=== PATIENT | female | born 1965 | race Caucasian/White ===

== ENCOUNTER 2024-07-04 02:27 | Day surgery (SDC) | payer OTHER, SELFPAY ==
[2024-06-23 13:50] VITALS: BMI 28.2
--- NOTE | 2024-06-23 14:00 | PC.NURSE ---
Report to the Outpatient Waiting Room, entrance under the green pavilion located off [facility], at time __0700__ on date ___07/04/24___. Planned Procedure Time: ___09___.? Time changes happen often and if your time is changed the preop area will call you the afternoon before. - You and your visitor will be asked to self-screen and do not enter if you have any COVID symptoms. Please call surgeon if you need to reschedule. - A mask is optional within the hospital at this time. Patients may have clear liquids (water, carbonated beverages, clear teas, apple juice) until 3 hours prior to surgery with a maximum of 20 ounces. - No food from midnight until time of surgery and no smoking, or chewing tobacco (or any form of nicotine). No chewing gum, candy or mints. Take only the following medications with a SIP of water on the morning of surgery: ____amlodipine and metoprolol____ DO NOT STOP ANY OF YOUR OTHER PRESCRIPTION MEDICATIONS PRIOR TO SURGERY EXCEPT THE FOLLOWING Hold all vitamins and supplements for 3 days per anesthesiologist. Please no make-up, nail kiswahili, hairspray, perfume, deodorant, or body powder the day of surgery.? No jewelry (including any body piercings) or valuables the day of surgery, leave them at home.? Please take a shower or bath the night before, or the morning of, surgery with an antibacterial soap.? Wear comfortable, loose fitting clothing. - Jewelry must be removed prior to entering the operating room.?Rings and piercings that are not removed may be cut off. - The hospital will not accept responsibility for valuables.? - Please leave all valuables, including medications, at home the day of surgery. If you are going home after surgery, a licensed otr driver must drive you home.? - NO public transportation without another adult if you receive anesthesia. - We recommend that an adult stay with you for 24 hours following discharge. - We also recommend that you do not drive, make important decision, drink alcoholic beverages, or take any drugs that were not prescribed by your health care provider for at least 24 hours after your discharge time. Follow any additional instructions given to you from your surgeon. Telephone instructions given to ___Jayne__and asked if any additional questions and then verbalized understanding. Patient advised to call surgeon office or pre surgery nurse liaison [phone] if any additional questions.
--- OUTSIDE RECORDS SUMMARY | 2024-07-04 02:32 | XMS_ITS ---
Author Organization [employer] [place] ([address]) Address [address] [place] [address] Care Team Providers Care Pneumatic Tool Operator Name Role Phone Kin BEARD, Nidal Primary Care Provider Unavail able Obed García Unavailable [phone] Scott Moraes Unavailable [phone] REASON FOR VISIT SCIT - Traditional Schedule Allergy immunotherapy Medications Medication SIG (Take, Route, Frequency, Duration) Notes Start Date End Date Status Norvasc 10 MG 1 tab(s) orally once a day Active AEROCHAMBER MDI SPACER - MOUTHPIECE (ADULT) N/A DIRECTED PO PER ASTHMA ACTION PLAN for 30 DAY(S) *Please review for potential replacement for e-prescription and drug interaction check* Active Lipitor 10 MG 1 tab(s) orally once a day (at bedtime) Active Bystolic 10 MG 1 tab(s) orally once a day Active Citalopram Hydrobromide 20 MG 1 tab(s) orally once a day for 30 day(s) Active PROAIR HFA CFC FREE 90 MCG/INH 2 PUFF(S) INHALED Q4-6 HOURS, PRN AND PER THE ASTHMA ACTION PLAN for 90 DAYS *Please review for potential replacement for e-prescription and drug interaction check* Active OLOPATADINE NASAL 665 MCG/INH 2 SPRAY(S) INTRANASALLY 2 TIMES A DAY for 30 DAY(S) *Please review for potential replacement for e-prescription and drug interaction check* Active Pataday 0.2 % 1 gtt in each affected eye once a day Active PROAIR HFA CFC FREE 90 MCG/INH 2 PUFF(S) INHALED Q4-6 HOURS, PRN AND PER THE ASTHMA ACTION PLAN for 90 DAYS *Please review for potential replacement for e-prescription and drug interaction check* Active OLOPATADINE NASAL 665 MCG/INH 2 SPRAY(S) INTRANASALLY 2 TIMES A DAY for 30 DAY(S) *Please review for potential replacement for e-prescription and drug interaction check* Active ASMANEX HFA 200 mcg/inh 400 mcg inhaled 2 times a day for 90 days Not-Taking ZYRTEC 10 mg 1 tab(s) orally bid Active METOPROLOL 50 mg 1 tab(s) orally once a day for 30 day(s) Active FLUTICASONE NASAL 27.5 mcg/inh 2 spray(s) intranasally BID, PRN Active DULERA 5 mcg-200 mcg/inh 2 puff(s) inhaled 2 times a day for 90 days Active PREDNISONE 10 mg Patient to call MD for dosage orally Patient to call MD for frequency Not-Taking CITALOPRAM 20 mg 1 tab(s) orally once a day for 30 day(s) Active NORVASC 10 mg 1 tab(s) orally once a day Active LIPITOR 10 mg 1 tab(s) orally once a day (at bedtime) Active BYSTOLIC 10 mg 1 tab(s) orally once a day Active PATADAY 0.2% 1 gtt in each affected eye once a day Active EPIPEN 2-SUKUMAR 0.3 mg 0.3 mg intramuscular 1X (may give a second dose in 10-15 minutes for persistent symptoms) Active PATADAY 0.2% 1 gtt in each affected eye once a day Active EpiPen 2-Sukumar 0.3 mg 0.3 mg intramuscular 1X (may give a second dose in 10-15 minutes for persistent symptoms) Active predniSONE 10 mg Patient to call MD for dosage orally Patient to call MD for frequency Not-Taking Fluticasone Furoate 27.5 MCG/SPRAY 2 spray(s) intranasally BID, PRN Active ZyrTEC Allergy 10 MG 1 tab(s) orally bid Active ASMANEX TWISTHALER 30 DOSE 220 MCG/INH 220 MCG INHALED ONCE A DAY (IN THE EVENING) for 90 DAYS *Please review for potential replacement for e-prescription and drug interaction check* Not-Taking Metoprolol Succinate ER 50 MG 1 tab(s) orally once a day for 30 day(s) Active Asmanex HFA 200 MCG/ACT 400 mcg inhaled 2 times a day for 90 days Not-Taking Dulera 200-5 MCG/ACT 2 puff(s) inhaled 2 times a day for 90 days Active SIT (TRADITIONAL) VARIABLE PER SCHEDULE SC PER SCHEDULE *Please review for potential replacement for e-prescription and drug interaction check* Active Encounters Encounter Location Date Provider Diagnosis [facility] [address] [place] [address] 05/17/2024 Scott Dimitry Allergic rhinitis due to pollen J30.1 ; Allergic rhinitis due to animal (cat) (dog) hair and dander J30.81 ; Other allergic rhinitis J30.89 and Other chronic allergic conjunctivitis H10.45 Assessments Encounter Date Diagnosis (ICD Code) Assessment Notes Treatment Notes Treatment Clinical Notes Section Notes 05/17/2024 Allergic rhinitis due to pollen (ICD-10 - J30.1) 05/17/2024 Allergic rhinitis due to animal (cat) (dog) hair and dander (ICD-10 - J30.81) 05/17/2024 Other allergic rhinitis (ICD-10 - J30.89) 05/17/2024 Other chronic allergic conjunctivitis (ICD-10 - H10.45) Plan Of Treatment Next Appt Details Follow Up: 1 Week, Reason: Provider Name:Scott Shelia Moraes , 07/19/2024 04:30:00 PM, [address] [place], [place] [address], [address], Progress Notes * Yee LANGEDOB:1965 (59 yo F)Acc No.[id number]:05/17/2024 SCIT-Aeroallergen Patient: Enid Yee SINGH Provider: Alia Moraes MD :1965 A ge:59 Y S ex:Female Date:05/17/2024 Address:[address], [facility] Pcp:Linsey Sanderson MD Subjective: * Chief Complaints: * S CIT - Traditional Schedule Allergy immunotherapy * HPI: * Introduction: The patient is here for scheduled immunotherapy. Please see the attached specialty form regarding the specifics of the administration of these vaccines. As per our protocol, the must undergo a screening health questionnaire (medication changes, reaction(s) to last immunotherapy dose(s), current health status, ACT (if appropriate), self-injectable epinephrine on patient(?) and peak flow (if appropriate)). Also, the patient must wait in our office for 30 minutes after receiving the vaccine(s). Furthermore, every patient must have an epinephrine pen (self-injectable) with them at the time of administration--and carry if for the following 1.5 hours after they leave our office. The patient must also have taken their antihistamine the day of the injection, preferably 2 hours prior. The consent form for SCIT (subcutaneous immunotherapy) is on file. * Medical History: * Surgical History: * Hospitalization/Major Diagno stic Procedure: * Medications: T akingEpiPen 2-Sukumar 0.3 mg kit 0.3 mg intramuscular 1X (may give a second dose in 10-15 minutes for persistent symptoms) EpiPen 2-Sukumar 0.3 mg kit 0.3 mg intramuscular 1X (may give a second dose in 10-15 minutes for persistent symptoms) PATADAY 0.2% solution 1 gtt in each affected eye once a day PATADAY 0.2% solution 1 gtt in each affected eye once a day EPIPEN 2-SUKUMAR 0.3 mg kit 0.3 mg intramuscular 1X (may give a second dose in 10-15 minutes for persistent symptoms) CITALOPRAM 20 mg tablet 1 tab(s) orally once a day LIPITOR 10 mg tablet 1 tab(s) orally once a day (at bedtime) BYSTOLIC 10 mg tablet 1 tab(s) orally once a day NORVASC 10 mg tablet 1 tab(s) orally once a day DULERA 5 mcg-200 mcg/inh aerosol 2 puff(s) inhaled 2 times a day FLUTICASONE NASAL 27.5 mcg/inh spray 2 spray(s) intranasally BID, PRN ZYRTEC 10 mg tablet 1 tab(s) orally bid METOPROLOL 50 mg tablet, extended release 1 tab(s) orally once a day Pataday 0.2 % Solution 1 gtt in each affected eye once a day PROAIR HFA CFC FREE 90 MCG/INH AEROSOL WITH ADAPTER 2 PUFF(S) INHALED Q4-6 HOURS, PRN AND PER THE ASTHMA ACTION PLAN , Notes to Pharmacist: *Please review for potential replacement for e-prescription and drug interaction check*OLOPATADINE NASAL 665 MCG/INH SPRAY 2 SPRAY(S) INTRANASALLY 2 TIMES A DAY , Notes to Pharmacist: *Please review for potential replacement for e-prescription and drug interaction check*PROAIR HFA CFC FREE 90 MCG/INH AEROSOL WITH ADAPTER 2 PUFF(S) INHALED Q4-6 HOURS, PRN AND PER THE ASTHMA ACTION PLAN , Notes to Pharmacist: *Please review for potential replacement for e-prescription and drug interaction check*OLOPATADINE NASAL 665 MCG/INH SPRAY 2 SPRAY(S) INTRANASALLY 2 TIMES A DAY , Notes to Pharmacist: *Please review for potential replacement for e-prescription and drug interaction check*Citalopram Hydrobromide 20 MG Tablet 1 tab(s) orally once a day Lipitor 10 MG Tablet 1 tab(s) orally once a day (at bedtime) Bystolic 10 MG Tablet 1 tab(s) orally once a day Norvasc 10 MG Tablet 1 tab(s) orally once a day AEROCHAMBER MDI SPACER - MOUTHPIECE (ADULT) N/A SPACER FOR MDI USE DIRECTED PO PER ASTHMA ACTION PLAN , Notes to Pharmacist: *Please review for potential replacement for e-prescription and drug interaction check*Dulera 200-5 MCG/ACT Aerosol 2 puff(s) inhaled 2 times a day SIT (TRADITIONAL) VARIABLE SEE RECORD PER SCHEDULE SC PER SCHEDULE , Notes to Pharmacist: *Please review for potential replacement for e-prescription and drug interaction check*Fluticasone Furoate 27.5 MCG/SPRAY Suspension 2 spray(s) intranasally BID, PRN ZyrTEC Allergy 10 MG Tablet 1 tab(s) orally bid Metoprolol Succinate ER 50 MG Tablet Extended Release 24 Hour 1 tab(s) orally once a day Taking EpiPen 2-Sukumar 0.3 mg kit 0.3 mg intramuscular 1X (may give a second dose in 10-15 minutes for persistent symptoms) Taking EpiPen 2-Sukumar 0.3 mg kit 0.3 mg intramuscular 1X (may give a second dose in 10-15 minutes for persistent symptoms) Taking PATADAY 0.2% solution 1 gtt in each affected eye once a day Taking PATADAY 0.2% solution 1 gtt in each affected eye once a day Taking EPIPEN 2-SUKUMAR 0.3 mg kit 0.3 mg intramuscular 1X (may give a second dose in 10-15 minutes for persistent symptoms) Taking CITALOPRAM 20 mg tablet 1 tab(s) orally once a day Taking LIPITOR 10 mg tablet 1 tab(s) orally once a day (at bedtime) Taking BYSTOLIC 10 mg tablet 1 tab(s) orally once a day Taking NORVASC 10 mg tablet 1 tab(s) orally once a day Taking DULERA 5 mcg-200 mcg/inh aerosol 2 puff(s) inhaled 2 times a day Taking FLUTICASONE NASAL 27.5 mcg/inh spray 2 spray(s) intranasally BID, PRN Taking ZYRTEC 10 mg tablet 1 tab(s) orally bid Taking METOPROLOL 50 mg tablet, extended release 1 tab(s) orally once a day Taking Pataday 0.2 % Solution 1 gtt in each affected eye once a day Taking PROAIR HFA CFC FREE 90 MCG/INH AEROSOL WITH ADAPTER 2 PUFF(S) INHALED Q4-6 HOURS, PRN AND PER THE ASTHMA ACTION PLAN , Notes to Pharmacist: *Please review for potential replacement for e-prescription and drug interaction check*Taking OLOPATADINE NASAL 665 MCG/INH SPRAY 2 SPRAY(S) INTRANASALLY 2 TIMES A DAY , Notes to Pharmacist: *Please review for potential replacement for e-prescription and drug interaction check*Taking PROAIR HFA CFC FREE 90 MCG/INH AEROSOL WITH ADAPTER 2 PUFF(S) INHALED Q4-6 HOURS, PRN AND PER THE ASTHMA ACTION PLAN , Notes to Pharmacist: *Please review for potential replacement for e-prescription and drug interaction check*Taking OLOPATADINE NASAL 665 MCG/INH SPRAY 2 SPRAY(S) INTRANASALLY 2 TIMES A DAY , Notes to Pharmacist: *Please review for potential replacement for e-prescription and drug interaction check*Taking Citalopram Hydrobromide 20 MG Tablet 1 tab(s) orally once a day Taking Lipitor 10 MG Tablet 1 tab(s) orally once a day (at bedtime) Taking Bystolic 10 MG Tablet 1 tab(s) orally once a day Taking Norvasc 10 MG Tablet 1 tab(s) orally once a day Taking AEROCHAMBER MDI SPACER - MOUTHPIECE (ADULT) N/A SPACER FOR MDI USE DIRECTED PO PER ASTHMA ACTION PLAN , Notes to Pharmacist: *Please review for potential replacement for e-prescription and drug interaction check*Taking Dulera 200-5 MCG/ACT Aerosol 2 puff(s) inhaled 2 times a day Taking SIT (TRADITIONAL) VARIABLE SEE RECORD PER SCHEDULE SC PER SCHEDULE , Notes to Pharmacist: *Please review for potential replacement for e-prescription and drug interaction check*Taking Fluticasone Furoate 27.5 MCG/SPRAY Suspension 2 spray(s) intranasally BID, PRN Taking ZyrTEC Allergy 10 MG Tablet 1 tab(s) orally bid Taking Metoprolol Succinate ER 50 MG Tablet Extended Release 24 Hour 1 tab(s) orally once a day Not- Taking/PRNpredniSONE 10 mg tablet Patient to call MD for dosage orally Patient to call MD for frequency predniSONE 10 mg tablet Patient to call MD for dosage orally Patient to call MD for frequency PREDNISONE 10 mg tablet Patient to call MD for dosage orally Patient to call MD for frequency ASMANEX HFA 200 mcg/inh aerosol 400 mcg inhaled 2 times a day Asmanex HFA 200 MCG/ACT Aerosol 400 mcg inhaled 2 times a day ASMANEX TWISTHALER 30 DOSE 220 MCG/INH AEROSOL POWDER 220 MCG INHALED ONCE A DAY (IN THE EVENING) , Notes to Pharmacist: *Please review for potential replacement for e-prescription and drug interaction check*Not-Taking/PRN predniSONE 10 mg tablet Patient to call MD for dosage orally Patient to call MD for frequency Not-Taking/PRN predniSONE 10 mg tablet Patient to call MD for dosage orally Patient to call MD for frequency Not- Taking/PRN PREDNISONE 10 mg tablet Patient to call MD for dosage orally Patient to call MD for frequency Not-Taking/PRN ASMANEX HFA 200 mcg/inh aerosol 400 mcg inhaled 2 times a day Not-Taking/PRN Asmanex HFA 200 MCG/ACT Aerosol 400 mcg inhaled 2 times a day Not-Taking/PRN ASMANEX TWISTHALER 30 DOSE 220 MCG/INH AEROSOL POWDER 220 MCG INHALED ONCE A DAY (IN THE EVENING) , Notes to Pharmacist: *Please review for potential replacement for e-prescription and drug interaction check* Objective: * Vitals: Assessment: * Assessment: 1. A llergic rhinitis due to pollen - J30.1 (Primary) 2 . A llergic rhinitis due to animal (cat) (dog) hair and dander - J30.81 3 . O ther allergic rhinitis - J30.89 4 . O ther chronic allergic conjunctivitis - H10.45 Plan: * Treatment: * Procedure Codes: 9 5117 IMMUNOTHERAPY INJECTIONS * Follow Up: 1 Week * Billing Information: * Visit Code: * Procedure Codes: 38932 IMMUNOTHERAPY INJECTIONS. * Sign off status: Completed true * Provider: Alia Moraes MD Date: 05/17/2024 Generated for Andrew taveras/Ry/Delonte on: 07/04/2024 02:32 AM CDT History and Physical Notes * HPI (History of Present Illness) Category Sub-Category Detail Notes Category Not es *Introduction The patient is here for scheduled immunotherapy. Please see the attached specialty form regarding the specifics of the administration of these vaccines. As per our protocol, the must undergo a screening health questionnaire (medication changes, reaction(s) to last immunotherapy dose(s), current health status, ACT (if appropriate), self-injectable epinephrine on patient(?) and peak flow (if appropriate)). Also, the patient must wait in our office for 30 minutes after receiving the vaccine(s). Furthermore, every patient must have an epinephrine pen (self-injectable) with them at the time of administration--and carry if for the following 1.5 hours after they leave our office. The patient must also have taken their antihistamine the day of the injection, preferably 2 hours prior. The consent form for SCIT (subcutaneous immunotherapy) is on file.
--- OUTSIDE RECORDS SUMMARY | 2024-07-04 02:32 | XMS_ITS ---
Author Organization [facility] [employer] [place] ([address]) Address [address] [place] [address] Care Team Providers Care Rn Plastic Surgery Name Role Phone Kin BEARD, Nidal Primary Care Provider Unavail able Obed García Unavailable [phone] Scott Moraes Unavailable [phone] REASON FOR VISIT SCIT - Traditional Schedule Allergy immunotherapy Medications Medication SIG (Take, Route, Frequency, Duration) Notes Start Date End Date Status EPIPEN 2-SUKUMAR 0.3 mg 0.3 mg intramuscular 1X (may give a second dose in 10-15 minutes for persistent symptoms) Active PATADAY 0.2% 1 gtt in each affected eye once a day Active predniSONE 10 mg Patient to call MD for dosage orally Patient to call MD for frequency Not-Taking PATADAY 0.2% 1 gtt in each affected eye once a day Active EpiPen 2-Sukumar 0.3 mg 0.3 mg intramuscular 1X (may give a second dose in 10-15 minutes for persistent symptoms) Active Fluticasone Furoate 27.5 MCG/SPRAY 2 spray(s) intranasally BID, PRN Active Metoprolol Succinate ER 50 MG 1 tab(s) orally once a day for 30 day(s) Active ZyrTEC Allergy 10 MG 1 tab(s) orally bid Active ASMANEX TWISTHALER 30 DOSE 220 MCG/INH 220 MCG INHALED ONCE A DAY (IN THE EVENING) for 90 DAYS *Please review for potential replacement for e-prescription and drug interaction check* Not-Taking Asmanex HFA 200 MCG/ACT 400 mcg inhaled 2 times a day for 90 days Not-Taking SIT (TRADITIONAL) VARIABLE PER SCHEDULE SC PER SCHEDULE *Please review for potential replacement for e-prescription and drug interaction check* Active Dulera 200-5 MCG/ACT 2 puff(s) inhaled 2 times a day for 90 days Active Bystolic 10 MG 1 tab(s) orally once a day Active AEROCHAMBER MDI SPACER - MOUTHPIECE (ADULT) N/A DIRECTED PO PER ASTHMA ACTION PLAN for 30 DAY(S) *Please review for potential replacement for e-prescription and drug interaction check* Active Norvasc 10 MG 1 tab(s) orally once a day Active Lipitor 10 MG 1 tab(s) orally once a day (at bedtime) Active PROAIR HFA CFC FREE 90 MCG/INH 2 PUFF(S) INHALED Q4-6 HOURS, PRN AND PER THE ASTHMA ACTION PLAN for 90 DAYS *Please review for potential replacement for e-prescription and drug interaction check* Active OLOPATADINE NASAL 665 MCG/INH 2 SPRAY(S) INTRANASALLY 2 TIMES A DAY for 30 DAY(S) *Please review for potential replacement for e-prescription and drug interaction check* Active Citalopram Hydrobromide 20 MG 1 tab(s) orally once a day for 30 day(s) Active OLOPATADINE NASAL 665 MCG/INH 2 SPRAY(S) INTRANASALLY 2 TIMES A DAY for 30 DAY(S) *Please review for potential replacement for e-prescription and drug interaction check* Active Pataday 0.2 % 1 gtt in each affected eye once a day Active ASMANEX HFA 200 mcg/inh 400 mcg inhaled 2 times a day for 90 days Not-Taking PROAIR HFA CFC FREE 90 MCG/INH 2 PUFF(S) INHALED Q4-6 HOURS, PRN AND PER THE ASTHMA ACTION PLAN for 90 DAYS *Please review for potential replacement for e-prescription and drug interaction check* Active METOPROLOL 50 mg 1 tab(s) orally once a day for 30 day(s) Active ZYRTEC 10 mg 1 tab(s) orally bid Active FLUTICASONE NASAL 27.5 mcg/inh 2 spray(s) intranasally BID, PRN Active DULERA 5 mcg-200 mcg/inh 2 puff(s) inhaled 2 times a day for 90 days Active LIPITOR 10 mg 1 tab(s) orally once a day (at bedtime) Active NORVASC 10 mg 1 tab(s) orally once a day Active BYSTOLIC 10 mg 1 tab(s) orally once a day Active CITALOPRAM 20 mg 1 tab(s) orally once a day for 30 day(s) Active PREDNISONE 10 mg Patient to call MD for dosage orally Patient to call MD for frequency Not-Taking Encounters Encounter Location Date Provider Diagnosis [address] [place] [address] 05/24/2024 Scott Dimitry Allergic rhinitis due to pollen J30.1 ; Allergic rhinitis due to animal (cat) (dog) hair and dander J30.81 ; Other allergic rhinitis J30.89 and Other chronic allergic conjunctivitis H10.45 Assessments Encounter Date Diagnosis (ICD Code) Assessment Notes Treatment Notes Treatment Clinical Notes Section Notes 05/24/2024 Allergic rhinitis due to pollen (ICD-10 - J30.1) 05/24/2024 Allergic rhinitis due to animal (cat) (dog) hair and dander (ICD-10 - J30.81) 05/24/2024 Other allergic rhinitis (ICD-10 - J30.89) 05/24/2024 Other chronic allergic conjunctivitis (ICD-10 - H10.45) Plan Of Treatment Next Appt Details Follow Up: 1 Week, Reason: Provider Name:Scott DenysGrace Dimitry , 07/19/2024 04:30:00 PM, [address] [place] [address], [id number], Progress Notes * Yee LANGEDOB:1965 (59 yo F)Acc No.[id number]:05/24/2024 SCIT-Aeroallergen Patient: Enid Yee SINGH Provider: Alia Moraes MD :1965 A ge:59 Y S ex:Female Date:05/24/2024 Address:[address], [facility] Pcp:Linsey Sanderson MD Subjective: * Chief Complaints: [...] Information: * Visit Code: * Procedure Codes: 82010 IMMUNOTHERAPY INJECTIONS. * Sign off status: Completed true * Provider: Alia Moraes MD Date: 05/24/2024 Generated for Andrew taveras/Ry/Delonte on: 07/04/2024 02:32 [...]
--- OUTSIDE RECORDS SUMMARY | 2024-07-04 02:33 | XMS_ITS ---
Author Organization [email or web address] & [facility] [place] ([address]) Address [address] [place] [address] Care Team Providers Care Retread Operator Name Role Phone Kin BEARD, [facility] Provider Unavail able Obed García Unavailable [phone] Scott Moraes Unavailable [phone] REASON FOR VISIT SCIT - Traditional Schedule Allergy immunotherapy Medications Medication SIG (Take, Route, Frequency, Duration) Notes Start Date End Date Status EpiPen 2-Sukumar 0.3 mg 0.3 mg intramuscular 1X (may give a second dose in 10-15 minutes for persistent symptoms) Active Metoprolol Succinate ER 50 MG 1 tab(s) orally once a day for 30 day(s) Active ASMANEX TWISTHALER 30 DOSE 220 MCG/INH 220 MCG INHALED ONCE A DAY (IN THE EVENING) for 90 DAYS *Please review for potential replacement for e-prescription and drug interaction check* Not-Taking Asmanex HFA 200 MCG/ACT 400 mcg inhaled 2 times a day for 90 days Not-Taking predniSONE 10 mg Patient to call MD for dosage orally Patient to call MD for frequency Not-Taking AEROCHAMBER MDI SPACER - MOUTHPIECE (ADULT) N/A DIRECTED PO PER ASTHMA ACTION PLAN for 30 DAY(S) *Please review for potential replacement for e-prescription and drug interaction check* Active SIT (TRADITIONAL) VARIABLE PER SCHEDULE SC PER SCHEDULE *Please review for potential replacement for e-prescription and drug interaction check* Active Dulera 200-5 MCG/ACT 2 puff(s) inhaled 2 times a day for 90 days Active ZyrTEC Allergy 10 MG 1 tab(s) orally bid Active Fluticasone Furoate 27.5 MCG/SPRAY 2 spray(s) intranasally BID, PRN Active Citalopram Hydrobromide 20 MG 1 tab(s) orally once a day for 30 day(s) Active OLOPATADINE NASAL 665 MCG/INH 2 SPRAY(S) INTRANASALLY 2 TIMES A DAY for 30 DAY(S) *Please review for potential replacement for e-prescription and drug interaction check* Active Bystolic 10 MG 1 tab(s) orally once a day Active Lipitor 10 MG 1 tab(s) orally once a day (at bedtime) Active Norvasc 10 MG 1 tab(s) orally once a day Active PROAIR HFA CFC [...] times a day for 90 days Not-Taking OLOPATADINE NASAL 665 MCG/INH 2 SPRAY(S) INTRANASALLY 2 TIMES A DAY for 30 DAY(S) *Please review for potential replacement for e-prescription and drug interaction check* Active PROAIR HFA CFC FREE 90 MCG/INH 2 PUFF(S) INHALED Q4-6 HOURS, PRN AND PER THE ASTHMA ACTION PLAN for 90 DAYS *Please review for potential replacement for e-prescription and drug interaction check* Active NORVASC 10 mg 1 tab(s) orally once a day Active FLUTICASONE NASAL 27.5 mcg/inh 2 spray(s) intranasally BID, PRN Active DULERA 5 mcg-200 mcg/inh 2 puff(s) inhaled 2 times a day for 90 days Active METOPROLOL 50 mg 1 tab(s) orally once a day for 30 day(s) Active ZYRTEC 10 mg 1 tab(s) orally bid Active BYSTOLIC 10 mg 1 tab(s) orally once a day Active LIPITOR 10 mg 1 tab(s) orally once a day (at bedtime) Active EPIPEN 2-SUKUMAR 0.3 mg 0.3 mg intramuscular 1X (may give a second dose in 10-15 minutes for persistent symptoms) Active CITALOPRAM 20 mg 1 tab(s) orally once a day for 30 day(s) Active PREDNISONE 10 mg Patient to call MD for dosage orally Patient to call MD for frequency Not-Taking PATADAY 0.2% 1 gtt in each affected eye once a day Active PATADAY 0.2% 1 gtt in each affected eye once a day Active Encounters Encounter Location Date Provider Diagnosis [address] [address] 06/21/2024 Scott Dimitry Allergic rhinitis due to pollen J30.1 ; Allergic rhinitis due to animal (cat) (dog) hair and dander J30.81 ; Other allergic rhinitis J30.89 and Other chronic allergic conjunctivitis H10.45 Assessments Encounter Date Diagnosis (ICD Code) Assessment Notes Treatment Notes Treatment Clinical Notes Section Notes 06/21/2024 Allergic rhinitis due to pollen (ICD-10 - J30.1) 06/21/2024 Allergic rhinitis due to animal (cat) (dog) hair and dander (ICD-10 - J30.81) 06/21/2024 Other allergic rhinitis (ICD-10 - J30.89) 06/21/2024 Other chronic allergic conjunctivitis (ICD-10 - H10.45) Plan Of Treatment Next Appt Details Follow Up: 1 Week, Reason: Provider Name:Scott DenysGrace Dimitry , 07/19/2024 04:30:00 PM, [address] [place] [address], [phone], Progress Notes * Yee LANGEDOB:1965 (59 yo F)Acc No.[id number]:06/21/2024 S[facility]-Aeroallergen Patient: Enid Yee SINGH Provider: Alia Moraes MD :1965 A ge:59 Y S ex:Female Date:06/21/2024 Address:[address], [place] Pcp:Linsey Sanderson MD Subjective: * Chief Complaints: [...] Information: * Visit Code: * Procedure Codes: 52690 IMMUNOTHERAPY INJECTIONS. * Sign off status: Completed true * Provider: Alia Moraes MD Date: 06/21/2024 Generated for Andrew taveras/Ry/Delonte on: 0 07/04/2024 02:32 AM CDT History and Physical [...]
--- OUTSIDE RECORDS SUMMARY | 2024-07-04 02:33 | XMS_ITS | Patient Health Record ---
Author Organization [employer] & [employer] [place] ([address]) Address [address] [place] [address] Care Team Providers Care Carpet Cleaner Name Role Phone Kin BEARD, [facility] Primary Care Provider Unavail able Obed García Unavailable [phone] Scott Moraes Unavailable [phone] ZMartell-Benito, Provider Unavailable Unavailab le Allergies No Known Allergies Reason For Referral No Information Medications Medication SIG (Take, Route, Frequency, Duration) Notes Start Date End Date Status BYSTOLIC 10 mg 1 tab(s) orally once [...] 1 tab(s) orally once a day Active ASMANEX TWISTHALER 30 DOSE 220 MCG/INH 220 MCG INHALED ONCE A DAY (IN THE EVENING) for 90 DAYS *Please review for potential replacement for e-prescription and drug interaction check* Not-Taking Asmanex HFA 200 MCG/ACT 400 mcg inhaled 2 times a day for 90 days Not-Taking FLUTICASONE NASAL 27.5 mcg/inh 2 spray(s) intranasally BID, PRN Active DULERA 5 mcg-200 mcg/inh 2 puff(s) inhaled 2 times a day for 90 days Active METOPROLOL 50 mg 1 tab(s) orally once a day for 30 day(s) Active ZYRTEC 10 mg 1 tab(s) orally bid Active Pataday 0.2 % 1 gtt in [...] for e-prescription and drug interaction check* Active EpiPen 2-Sukumar 0.3 mg 0.3 mg intramuscular 1X (may give a second dose in 10-15 minutes for persistent symptoms) Active Citalopram Hydrobromide 20 MG 1 tab(s) orally once a day for 30 day(s) Active OLOPATADINE NASAL 665 MCG/INH 2 SPRAY(S) INTRANASALLY 2 TIMES A DAY for 30 DAY(S) *Please review for potential replacement for e-prescription and drug interaction check* Active PREDNISONE 10 mg Patient to call MD for dosage orally Patient to call MD for frequency Not-Taking Bystolic 10 MG 1 tab(s) orally once a day Active predniSONE 10 mg Patient to call MD for dosage orally Patient to call MD for frequency Not-Taking Lipitor 10 MG 1 tab(s) orally once a day (at bedtime) Active PATADAY 0.2% 1 gtt in each affected eye once a day Active AEROCHAMBER MDI SPACER - MOUTHPIECE (ADULT) N/A DIRECTED PO PER ASTHMA ACTION PLAN for 30 DAY(S) *Please review for potential replacement for e-prescription and drug interaction check* Active Norvasc 10 MG 1 tab(s) orally once a day Active EPIPEN 2-SUKUMAR 0.3 mg 0.3 mg intramuscular 1X (may give a second dose in 10-15 minutes for persistent symptoms) Active SIT (TRADITIONAL) VARIABLE PER SCHEDULE SC PER SCHEDULE *Please review for potential replacement for e-prescription and drug interaction check* Active PATADAY 0.2% 1 gtt in each affected eye once a day Active Dulera 200-5 MCG/ACT 2 puff(s) inhaled 2 times a day for 90 days Active CITALOPRAM 20 mg 1 tab(s) orally once a day for 30 day(s) Active ZyrTEC Allergy 10 MG 1 tab(s) orally bid Active PREDNISONE 10 mg Patient to call MD for dosage orally Patient to call MD for frequency Not-Taking Fluticasone Furoate 27.5 MCG/SPRAY 2 spray(s) intranasally BID, PRN Active Immunizations Vaccine Route Administration Date Status Comme nts NOC Fluzone Quadrivalent Unknown 02/02/2018 Refused NOC Fluzone Quadrivalent Unknown 05/04/2018 Refused Covid 19 (Pfizer) Unknown 04/18/2020 Administered Covid 19 (Pfizer) Unknown 05/12/2020 Administered Social History Tobacco Use: Social History Observation Description Date Details (start date - stop date) Never Smoker NA - NA Smoking Smart Form: Question Answer Notes Are you a: never smoker Problems Problem Type SNOMED Code ICD Code Onset Dates Problem Status W/U Status Risk Notes Problem Chronic allergic conjunctivitis (91587486) Other chronic allergic conjunctivitis (H10.45) Active confirmed Problem Allergic rhinitis caused by pollen (disorder) (61036302) Allergic rhinitis due to pollen (J30.1) Active confirmed Problem Allergic rhiniti s due to animal (cat) (dog) hair and dander (J30.81) Active confirmed Problem Allergic rhinitis (79337736) Other allergic rhinitis (J30.89) Active confirmed Problem Uncomplicated mild persistent asthma (908957233) Mild persistent asthma, uncomplicated (J45.30) Active confirmed Problem Exacerbation of mild persistent asthma (disorder) (181575273) Mild persistent asthma with (acute) exacerbation (J45.31) Active confirmed Problem Allergic rhinitis caused by pollen (disorder) (34741004) Allergic rhinitis due to pollen (J30.1) Active confirmed Problem Allergic rhiniti s due to animal (cat) (dog) hair and dander (J30.81) Active confirmed Problem Allergic rhinitis (80471916) Other allergic rhinitis (J30.89) Active confirmed Problem Chronic allergic conjunctivitis (81593568) Other chronic allergic conjunctivitis (H10.45) Active confirmed Problem Elevated blood pressure reading without diagnosis of hypertension (611494763) Elevated blood-pressure reading, without diagnosis of hypertension (R03.0) Active confirmed Encounters Encounter Location Date Provider Diagnosis [address] [address] 07/29/2023 Scott Moraes Allergic rhinitis du e to pollen J30.1 ; Allergic rhinitis due to animal (cat) (dog) hair and dander J30.81 ; Other allergic rhinitis J30.89 and Other chronic allergic conjunctivitis H10.[address] [address] 08/20/2023 Scott Moraes Allergic rhinitis du e to pollen J30.1 ; Allergic rhinitis due to animal (cat) (dog) hair and dander J30.81 ; Other allergic rhinitis J30.89 and Other chronic allergic conjunctivitis H10.[address] [address] 09/17/2023 Scott Moraes Allergic rhinitis du e to pollen J30.1 ; Allergic rhinitis due to animal (cat) (dog) hair and dander J30.81 ; Other allergic rhinitis J30.89 and Other chronic allergic conjunctivitis H10.[address] [address] 10/15/2023 Scott Moraes Allergic rhinitis du e to pollen J30.1 ; Allergic rhinitis due to animal (cat) (dog) hair and dander J30.81 ; Other allergic rhinitis J30.89 and Other chronic allergic conjunctivitis H10.[address] [address] 11/11/2023 Scott Moraes Allergic rhinitis du e to pollen J30.1 ; Allergic rhinitis due to animal (cat) (dog) hair and dander J30.81 ; Other allergic rhinitis J30.89 and Other chronic allergic conjunctivitis H10.[address] [address] 12/09/2023 Scott Moraes Allergic rhinitis du e to pollen J30.1 ; Allergic rhinitis due to animal (cat) (dog) hair and dander J30.81 ; Other allergic rhinitis J30.89 and Other chronic allergic conjunctivitis H10.45 [facility] [place] [address] [place] [address] 01/13/2024 Scott Moraes Allergic rhinitis du e to pollen J30.1 ; Allergic rhinitis due to animal (cat) (dog) hair and dander J30.81 ; Other allergic rhinitis J30.89 and Other chronic allergic conjunctivitis H10.45 [facility] [place] [address] [place] [address] 02/10/2024 Scott Moraes Allergic rhinitis du e to pollen J30.1 ; Allergic rhinitis due to animal (cat) (dog) hair and dander J30.81 ; Other allergic rhinitis J30.89 and Other chronic allergic conjunctivitis H10.45 [facility] [address] [place] [address] 03/15/2024 Scott Moraes Allergic rhinitis du e to pollen J30.1 ; Allergic rhinitis due to animal (cat) (dog) hair and dander J30.81 ; Other allergic rhinitis J30.89 and Other chronic allergic conjunctivitis H10.45 [facility] [address] [place] [address] 04/12/2024 Scott Moraes Allergic rhinitis du e to pollen J30.1 ; Allergic rhinitis due to animal (cat) (dog) hair and dander J30.81 ; Other allergic rhinitis J30.89 and Other chronic allergic conjunctivitis H10.45 [facility] [place] [address] [place] [address] 05/11/2024 Scott Moraes Allergic rhinitis du e to pollen J30.1 ; Allergic rhinitis due to animal (cat) (dog) hair and dander J30.81 ; Other allergic rhinitis J30.89 and Other chronic allergic conjunctivitis H10.45 [facility] [place] [address] [place] [address] 05/17/2024 Scott Moraes Allergic rhinitis du e to pollen J30.1 ; Allergic rhinitis due to animal (cat) (dog) hair and dander J30.81 ; Other allergic rhinitis J30.89 and Other chronic allergic conjunctivitis H10.45 [facility] [place] [address] [place] [address] 05/24/2024 Scott Moraes Allergic rhinitis du e to pollen J30.1 ; Allergic rhinitis due to animal (cat) (dog) hair and dander J30.81 ; Other allergic rhinitis J30.89 and Other chronic allergic conjunctivitis H10.45 [facility] [address] [place] [address] 06/21/2024 Scott Moraes Allergic rhinitis du e to pollen J30.1 ; Allergic rhinitis due to animal (cat) (dog) hair and dander J30.81 ; Other allergic rhinitis J30.89 and Other chronic allergic conjunctivitis H10.45 [facility] [address] [place] [address] 08/15/2023 Provider [employer] Assessments Encounter Date Diagnosis (ICD Code) Assessment Notes Treatment Notes Treatment Clinical Notes Section Notes 10/15/2023 Allergic rhinitis due to pollen (ICD-10 - J30.1) 05/11/2024 Allergic rhinitis due to pollen (ICD-10 - J30.1) 07/29/2023 Allergic rhinitis due to pollen (ICD-10 - J30.1) 06/21/2024 Allergic rhinitis due to pollen (ICD-10 - J30.1) 08/20/2023 Allergic rhinitis due to pollen (ICD-10 - J30.1) 12/09/2023 Allergic rhinitis due to pollen (ICD-10 - J30.1) 05/17/2024 Allergic rhinitis due to pollen (ICD-10 - J30.1) 11/11/2023 Allergic rhinitis due to pollen (ICD-10 - J30.1) 04/12/2024 Allergic rhinitis due to pollen (ICD-10 - J30.1) 02/10/2024 Allergic rhinitis due to pollen (ICD-10 - J30.1) 03/15/2024 Allergic rhinitis due to pollen (ICD-10 - J30.1) 01/13/2024 Allergic rhinitis due to pollen (ICD-10 - J30.1) 09/17/2023 Allergic rhinitis due to pollen (ICD-10 - J30.1) 05/24/2024 Allergic rhinitis due to pollen (ICD-10 - J30.1) 05/24/2024 Allergic rhinitis due to animal (cat) (dog) hair and dander (ICD-10 - J30.81) 09/17/2023 Allergic rhinitis due to animal (cat) (dog) hair and dander (ICD-10 - J30.81) 01/13/2024 Allergic rhinitis due to animal (cat) (dog) hair and dander (ICD-10 - J30.81) 03/15/2024 Allergic rhinitis due to animal (cat) (dog) hair and dander (ICD-10 - J30.81) 02/10/2024 Allergic rhinitis due to animal (cat) (dog) hair and dander (ICD-10 - J30.81) 04/12/2024 Allergic rhinitis due to animal (cat) (dog) hair and dander (ICD-10 - J30.81) 11/11/2023 Allergic rhinitis due to animal (cat) (dog) hair and dander (ICD-10 - J30.81) 05/17/2024 Allergic rhinitis due to animal (cat) (dog) hair and dander (ICD-10 - J30.81) 12/09/2023 Allergic rhinitis due to animal (cat) (dog) hair and dander (ICD-10 - J30.81) 08/20/2023 Allergic rhinitis due to animal (cat) (dog) hair and dander (ICD-10 - J30.81) 06/21/2024 Allergic rhinitis due to animal (cat) (dog) hair and dander (ICD-10 - J30.81) 07/29/2023 Allergic rhinitis due to animal (cat) (dog) hair and dander (ICD-10 - J30.81) 05/11/2024 Allergic rhinitis due to animal (cat) (dog) hair and dander (ICD-10 - J30.81) 10/15/2023 Allergic rhinitis due to animal (cat) (dog) hair and dander (ICD-10 - J30.81) 10/15/2023 Other allergic rhinitis (ICD-10 - J30.89) 05/11/2024 Other allergic rhinitis (ICD-10 - J30.89) 07/29/2023 Other allergic rhinitis (ICD-10 - J30.89) 06/21/2024 Other allergic rhinitis (ICD-10 - J30.89) 08/20/2023 Other allergic rhinitis (ICD-10 - J30.89) 12/09/2023 Other allergic rhinitis (ICD-10 - J30.89) 05/17/2024 Other allergic rhinitis (ICD-10 - J30.89) 11/11/2023 Other allergic rhinitis (ICD-10 - J30.89) 04/12/2024 Other allergic rhinitis (ICD-10 - J30.89) 02/10/2024 Other allergic rhinitis (ICD-10 - J30.89) 03/15/2024 Other allergic rhinitis (ICD-10 - J30.89) 01/13/2024 Other allergic rhinitis (ICD-10 - J30.89) 09/17/2023 Other allergic rhinitis (ICD-10 - J30.89) 05/24/2024 Other allergic rhinitis (ICD-10 - J30.89) 05/24/2024 Other chronic allergic conjunctivitis (ICD-10 - H10.45) 09/17/2023 Other chronic allergic conjunctivitis (ICD-10 - H10.45) 01/13/2024 Other chronic allergic conjunctivitis (ICD-10 - H10.45) 03/15/2024 Other chronic allergic conjunctivitis (ICD-10 - H10.45) 02/10/2024 Other chronic allergic conjunctivitis (ICD-10 - H10.45) 04/12/2024 Other chronic allergic conjunctivitis (ICD-10 - H10.45) 11/11/2023 Other chronic allergic conjunctivitis (ICD-10 - H10.45) 05/17/2024 Other chronic allergic conjunctivitis (ICD-10 - H10.45) 12/09/2023 Other chronic allergic conjunctivitis (ICD-10 - H10.45) 08/20/2023 Other chronic allergic conjunctivitis (ICD-10 - H10.45) 06/21/2024 Other chronic allergic conjunctivitis (ICD-10 - H10.45) 07/29/2023 Other chronic allergic conjunctivitis (ICD-10 - H10.45) 05/11/2024 Other chronic allergic conjunctivitis (ICD-10 - H10.45) 10/15/2023 Other chronic allergic conjunctivitis (ICD-10 - H10.45) Plan Of Treatment Next Appt Details Provider Name:Scott Moraes , 07/19/2024 04:30:00 PM, [address], [place], [address], Insurance Providers Payer Name Payer Address Payer Phone Subscriber Number Group Number Insured Name Patient Relationship to Insured Coverage Start Date Coverage End Date [facility] [id number] [place] [address] [phone] [id number] Yee Vera Self - patient is the insured Medical (General) History Medical History History ICD Code High Cholesterol BPV Allergic rhinitis due to pollen Other allergic rhinitis Allergic rhinitis due to animal (cat) (d og) hair and dander Other chronic allergic conjunctivitis Mild persistent asthma, uncomplicated Surgical History Surgery Date(Month/Year) Hospitalization History Reason Date(Month/Year)
--- OUTSIDE RECORDS SUMMARY | 2024-07-04 02:33 | XMS_ITS | Clinical Summary ---
Author Organization [facility] at [facility] Address [address] [place] [address] Care Team Providers Care Engravings Polisher Name Role Phone Linsey Sanderson MD Primary Care Provider Allergies No known active allergies Medications olopatadine (PATADAY) 0.2 % ophthalmic solution 0.2 % 2 (two) times a day 6 Active hydrocortisone (ANUSOL-HC) 2.5 % rectal cream Insert 2.5 % into the rectum 2 (two) times a day 6 Active fluticasone propionate (FLONASE) 50 mcg/actuation nasal spray Administer 1 spray into each nostril daily Active diclofenac sodium (VOLTAREN) 1 % gel Apply 4 g topically every 6 (six) hours as needed 1 9 Active multivit-min/iron /folic acid/K (ADULTS MULTIVITAMIN ORAL) daily Active cetirizine (ZyrTEC) 10 mg tablet 1 tablet (10 mg total) daily Active albuterol HFA (PROVENTIL HFA,VENTOLIN HFA,PROAIR HFA) 90 mcg/actuation inhaler Inhale 2 puffs every 4 (four) hours Active estradiol-norethi ndrone (ACTIVELLA) 0.5-0.1 mg per tablet 1 Active valACYclovir (VALTREX) 1 gram tablet Take 1 tablet (1,000 mg total) by mouth daily as needed 1 Active escitalopram (LEXAPRO) 10 mg tablet Take 1 tablet (10 mg total) by mouth daily 100 tablet 1 4 Active atorvastatin (LIPITOR) 10 mg tablet TAKE 1 TABLET DAILY 90 tablet 3 4 Active amLODIPine (NORVASC) 10 mg tablet TAKE 1 TABLET DAILY 90 tablet 3 4 Active meloxicam (MOBIC) 15 mg tablet TAKE 1 TABLET DAILY 90 tablet 3 4 Active metoprolol (LOPRESSOR) 100 mg tablet TAKE 1 TABLET DAILY 90 tablet 3 4 Active citalopram (CeleXA) 20 mg tablet daily Active Active Problems Problem Noted Date Diagnosed Date Routine general medical exam ination at a health care facility 11/17/2022 Assessment & Plan (05/18/2024 4:56 PM CDT): Patient uses seatbelt. Patient tries to exercise on regular basis. Lab results discussed. Patient is up-to-date with vaccines. Patient is followed by virtual classroom manager on regular basis for Pap smear and mammogram. Colonoscopy in 2023 showed 1 polyp and repeat in 3 years according to the patient Assessment & Plan (11/17/2022 4:57 PM CDT): Patient uses seatbelt. Patient tries to exercise on regular basis. She lost few lb. Lab results discussed. Patient is up-to-date with vaccines. Patient is followed by virtual classroom manager on regular basis for Pap smear and mammogram. Vertigo 08/11/2015 Hypertension, essential 08/11/2015 Assessment & Plan (05/18/2024 1:12 PM CDT): Continue current medications. Discussed low-salt diet. Discussed exercise on regular basis. Will continue to monitor Assessment & Plan (11/18/2023 5:15 PM CDT): Blood pressure is high. Patient feels very stressed out. I told her to check her blood pressure on regular basis at home and call with readings over 140/80. Assessment & Plan (05/18/2023 12:47 PM CDT): Continue current medications. Discussed low-salt diet. Discussed exercise on regular basis. Will continue to monitor Assessment & Plan (11/17/2022 12:55 PM CDT): Continue current medications. Discussed low-salt diet. Discussed exercise on regular basis. Will continue to monitor Assessment & Plan (03/19/2022 5:02 PM STONE LAYOUT MARKER): Continue current medications. Discussed low-salt diet. Discussed exercise on regular basis. Will continue to monitor Assessment & Plan (09/12/2021 4:11 PM CDT): Continue current medications. Discussed low-salt diet. Discussed exercise on regular basis. Will continue to monitor Assessment & Plan (03/14/2021 12:53 PM STONE LAYOUT MARKER): Continue current medications. Discussed low-salt diet. Discussed exercise on regular basis. Will continue to monitor Assessment & Plan (09/10/2020 8:02 AM CDT): Continue current medications. Discussed low-salt diet. Discussed exercise on regular basis. Will continue to monitor Assessment & Plan (03/12/2020 1:25 PM STONE LAYOUT MARKER): Continue current medications. Discussed low-salt diet. Discussed exercise on regular basis. Will continue to monitor Assessment & Plan (09/07/2019 9:24 AM CDT): Continue current medications. Discussed low-salt diet. Discussed exercise on regular basis. Will continue to monitor Assessment & Plan (03/09/2019 5:05 PM STONE LAYOUT MARKER): Continue current medications. Discussed low-salt diet. Discussed exercise on regular basis. Will continue to monitor Assessment & Plan (09/03/2018 10:28 AM CDT): Continue current medications. Discussed low-salt diet. Discussed exercise on regular basis. Will continue to monitor Dyslipidemia 08/11/2015 Assessment & Plan (05/18/2024 1:12 PM CDT): Controlled on current medications. Continue low-fat diet. Will continue to monitor . Assessment & Plan (11/18/2023 8:54 AM CDT): Controlled on current medications. Continue low-fat diet. Will continue to monitor . Assessment & Plan (05/18/2023 12:47 PM CDT): Controlled on current medications. Continue low-fat diet. Will continue to monitor . Assessment & Plan (11/17/2022 12:55 PM CDT): Controlled on current medications. Continue low-fat diet. Will continue to monitor . Assessment & Plan (03/19/2022 5:02 PM STONE LAYOUT MARKER): Controlled on current medications. Continue low-fat diet. Will continue to monitor . Assessment & Plan (09/12/2021 4:11 PM CDT): Controlled on current medications. Continue low-fat diet. Will continue to monitor . Assessment & Plan (03/14/2021 12:53 PM STONE LAYOUT MARKER): Controlled on current medications. Continue low-fat diet. Will continue to monitor . Assessment & Plan (09/10/2020 8:02 AM CDT): Controlled on low-fat diet Assessment & Plan (03/12/2020 1:26 PM STONE LAYOUT MARKER): Controlled on current medications. Continue low-fat diet. Will continue to monitor . Assessment & Plan (09/07/2019 9:24 AM CDT): Controlled on current medications. Continue low-fat diet. Will continue to monitor . Assessment & Plan (03/09/2019 5:05 PM STONE LAYOUT MARKER): Controlled on current medications. Continue low-fat diet. Will continue to monitor . Assessment & Plan (09/03/2018 10:27 AM CDT): Controlled on current medications. Continue low-fat diet. Will continue to monitor . Recurrent major depressive disorder, in full rem ission 08/11/2015 Assessment & Plan (05/18/2024 1:12 PM CDT): Controlled on Lexapro Assessment & Plan (11/18/2023 5:15 PM CDT): Patient was not taking Lexapro but she has increased anxiety and depression. Will resume Lexapro 10 mg daily and she will call in 1 month for persistent symptoms Assessment & Plan (05/18/2023 12:47 PM CDT): Patient is in remission and controlled on Lexapro Assessment & Plan (11/17/2022 12:55 PM CDT): Patient is in remission and controlled on Lexapro Assessment & Plan (03/19/2022 5:03 PM STONE LAYOUT MARKER): Patient is in remission and controlled on Lexapro Assessment & Plan (09/12/2021 4:11 PM CDT): Controlled on Lexapro Assessment & Plan (03/14/2021 12:53 PM STONE LAYOUT MARKER): Controlled on Lexapro Assessment & Plan (09/10/2020 8:02 AM CDT): Controlled on Lexapro Assessment & Plan (03/12/2020 1:26 PM STONE LAYOUT MARKER): Controlled on Lexapro Assessment & Plan (09/07/2019 9:24 AM CDT): Controlled on Lexapro Assessment & Plan (03/09/2019 5:05 PM STONE LAYOUT MARKER): Controlled on current medication Assessment & Plan (09/03/2018 10:27 AM CDT): Controlled on medication Allergic rhinitis 08/11/2015 Assessment & Plan (11/18/2023 8:54 AM CDT): Followed by the top steep tender Assessment & Plan (03/19/2022 5:03 PM STONE LAYOUT MARKER): Followed by the top steep tender Assessment & Plan (09/12/2021 4:11 PM CDT): Controlled on Flonase Assessment & Plan (09/10/2020 8:02 AM CDT): Controlled on Shea Assessment & Plan (03/12/2020 1:26 PM STONE LAYOUT MARKER): Controlled on Flonase and Zyrtec Assessment & Plan (09/07/2019 9:24 AM CDT): Controlled on Flonase and Zyrtec Assessment & Plan (03/09/2019 5:05 PM STONE LAYOUT MARKER): Controlled on Zyrtec and Flonase Assessment & Plan (09/03/2018 10:28 AM CDT): Controlled on Zyrtec Encounters Date Type Department Care Team Description 05/24/2024 Orders Only [facility] Medical [facility] Internal Medicine [address] [place] [phone] ProviderAugie MD 05/18/2024 4:15 PM CDT Office Visit [facility] Internal Medicine [address] [place] [phone] Linsey Sanderson MD Routine general medical examination at a health care facility (Primary Dx); Dyslipidemia; Hypertension, essential; Recurrent major depressive disorder, in full remission; BMI 28.0-28.9,adult from Last 3 Months Immunizations Immunization Administration Dates Next Due Influenza, Unspecified 11/17/2022(Deferr ed: Patient decision),03/19/2022(Deferred: Patient Refused) Pfizer SARS-CoV-2 Monovalent Vaccination (12+ Yrs) PURPLE 05/12/2020,04/18/2020 Tdap 03/09/2019 Medical History Medical History Date Comments HTN (hypertension) HLD (hyperlipidemia) Allergic rhinitis Depression Vertigo Family History Medical History Relation Name Comments Cancer Father Mental illness Father Parkinsonism Father Brain cancer Mother Cancer Mother Heart disease Mother Hypertension Mother Uterine cancer Mother Relation Name Status Comments Father Mother Social History Tobacco Use Types Packs/Day Years Used Date Smoking Tobacco: Never Smokeless Tobacco: Never Alcohol Use Standard Drinks/Week Comments Never 0 (1 standard drink = 0.6 oz pur e alcohol) AUDIT-C Answer Date Recorded Q1: How often do you have a drink containing alcohol? Never 05/18/2024 Q2: How many drinks containi ng alcohol do you have on a typical day when you are drinking? Patient does not drink Q3: How often do you have si x or more drinks on one occasion? Never 05/18/2024 PHQ-2 Answer Date Recorded PHQ-2 Total Score (If total score is 3 or more points, staff should administer the PHQ-9) 0 05/18/2024 Comments No Sex and Gender Information Value Date Recorded Sex Assigned at Not on file Legal Sex Female 6:29 PM STONE LAYOUT MARKER Gender Identity Female 01/06/2022 2:08 PM STONE LAYOUT MARKER Sexual Orientation Not on file Obstetrics History Para Term AB IAB SAB Ectopic Multiple Livin g Live Births 2 2 2 Date Outcome GA Total Labor Labor/2nd/3rd Weight Sex Type Anes PTL Tamia A1 A5 Name Clin Term Term Last Filed Vital Signs Vital Sign Reading Time Taken Comments Blood Pressure 140/72 05/18/2024 4:16 PM CDT Pulse 66 05/18/2024 4:16 PM CDT Temperature 36.6 C (97.8 F) 05/18/2024 4:16 PM CDT Respiratory Rate 18 05/18/2024 4:16 PM CDT Oxygen Saturation 98% 05/18/2024 4:16 PM CDT Inhaled Oxygen Concentration - - Weight 73.9 kg (163 lb) 05/18/2024 4:16 PM CDT Height 160 cm (5' 3 ) 05/18/2024 4:16 PM CDT Body Mass Index 28.87 05/18/2024 4:16 PM CDT Plan of Treatment Health Maintenance Due Date Last Done Comments Hepatitis B Screening 1981 Zoster Vaccine (1 of 2) 2013 Cervical Cancer Screening 09/23/2019 09/22/2018 Covid-19 Vaccine ( season) 2023 05/12/2020, 04/18/2020 Influenza Vaccine (#1) 2023 Breast Cancer Screening-Mammogram 12/14/2024 12/15/2023, 12/02/2022, 07/31/2021, Additional history exists Depression Screening 05/18/2025 05/18/2024, 05/18/2023, 11/17/2022, Additional history exists Regular Well Visit/Exam 18-64 05/18/2025 05/18/2024, 11/17/2022 Colon Cancer Screening-Colonoscopy 05/27/2026 05/28/2023, 08/19/2013 DTaP/Tdap/Td Vaccine (2 - Td or Tdap) 03/09/2029 03/09/2019 Hepatitis C Screening Completed 02/29/2020 Colon Cancer Screening-CT Colonography Discontinued 05/28/2023, 08/19/2013 Colon Cancer Screening-DNA Stool Discontinued 05/28/2023, 08/19/2013 Colon Cancer Screening-FIT Discontinued 05/28/2023, Colon Cancer Screening-Sigmoidoscopy Discontinued 05/28/2023, 08/19/2013 Pneumococcal vaccine <65 Aged Out No longer eligible based on patient's age to complete this topic Procedures Procedure Name Priority Date/Time Associated Diagnosis Comments COMPREHENSIVE METABOLIC PANEL Routine 05/06/2024 9:04 AM STONE LAYOUT MARKER Dyslipidemia Hypertension, essential CBC WITH AUTO DIFFERENTIAL Routine 05/06/2024 9:04 AM STONE LAYOUT MARKER Dyslipidemia Hypertension, essential LIPID PANEL Routine 05/06/2024 9:04 AM STONE LAYOUT MARKER Dyslipidemia SCREENING MAMMOGRAM BILATERAL W CIRO Schedule Routine, Read Routine (OP Routine) 12/15/2023 4:46 PM CDT Breast cancer screening by mammogram COLONOSCOPY Routine 05/28/2023 4:08 PM CDT HEPATITIS C ANTIBODY Routine 02/29/2020 8:35 AM STONE LAYOUT MARKER HM PAP SMEAR WITH HPV Routine 09/22/2018 from Last 3 Months or Most Recently Relevant to Health Maintenance Results * CBC with auto differential (05/06/2024 9:04 AM STONE LAYOUT MARKER) WBC 4.4 3.4 - 10.8 x10E3/uL [facility] - 01 RBC 4.89 3.77 - 5.28 x10E6/uL [facility] - 01 Hgb 13.9 11.1 - 15.9 g/dL [facility] - 01 Hct 43.4 34.0 - 46.6 % [facility] - 01 MCV 89 79 - 97 fL [facility] - 01 MCH 28.4 26.6 - 33.0 pg [facility] - 01 MCHC 32.0 31.5 - 35.7 g/dL [facility] - 01 Rdw 12.9 11.7 - 15.4 % [facility] - 01 Platelets 280 150 - 450 x10E3/uL [facility] - 01 Neutrophils pct 53 Not Estab. % [facility] - 01 Lymphs pct 29 Not Estab. % [facility] - 01 Monocytes pct 9 Not Estab. % [facility] - 01 Eosinophils pct 8 Not Estab. % [facility] - 01 Basophil pct 1 Not Estab. % [facility] - 01 Neutrophil abs 2.3 1.4 - 7.0 x10E3/uL [facility] - 01 Lymphs (Absolute) 1.3 0.7 - 3.1 x10E3/uL [facility] - 01 Monocyte abs 0.4 0.1 - 0.9 x10E3/uL [facility] - 01 Eosinophils, abs 0.4 0.0 - 0.4 x10E3/uL [facility] - 01 Basophils, abs 0.0 0.0 - 0.2 x10E3/uL [facility] - 01 Immature Granulocytes 0 Not Estab. % [facility] - 01 Immature Grans (Abs) 0.0 0.0 - 0.1 x10E3/uL [facility] - 01 Blood 05/06/2024 9:04 AM STONE LAYOUT MARKER 05/06/2024 Narrative [facility] - 05/07/2024 7:09 AM STONE LAYOUT MARKER Performed at: 01 - [facility] [id number] Blower Feeder Dyed Raw Stock: Brock Jamil PhD, Phone: [phone] Linsey Sanderson MD LAB BLOOD ORDERABLES Final Result Performing Organization Address [facility] Co de Phone Number [facility] * Lipid panel (05/06/2024 9:04 AM STONE LAYOUT MARKER) Cholesterol 160 100 - 199 mg/dL [facility] - 01 Triglycerides 110 0 - 149 mg/dL [facility] - 01 HDL Cholesterol 60 >39 mg/dL [facility] - 01 VLDL 20 5 - 40 mg/dL [facility] - 01 LDL, calculated 80 0 - 99 mg/dL [facility] - 01 Blood 05/06/2024 9:04 AM STONE LAYOUT MARKER 05/06/2024 Narrative [facility] - 05/07/2024 9:10 AM STONE LAYOUT MARKER Performed at: [address] [id number] Blower Feeder [employer] Raw Stock: Brock Jamil PhD, Phone: [phone] Linsey Sanderson MD LAB BLOOD ORDERABLES Final Result Performing Organization Address [facility] de Phone Number [facility] * Comprehensive metabolic panel (05/06/2024 9:04 AM STONE LAYOUT MARKER) Glucose 82 70 - 99 mg/dL [facility] - 01 BUN 14 8 - 27 mg/dL [facility] - 01 Creatinine, Serum 0.70 0.57 - 1.00 mg/dL [facility] - 01 eGFR 98 >59 mL/min/1.73 [facility] - 01 BUN/creat ratio 20 12 - 28 [facility] - 01 Sodium 143 134 - 144 mmol/L [facility] - 01 Potassium, sr 3.9 3.5 - 5.2 mmol/L [facility] - 01 Chloride 103 96 - 106 mmol/L [facility] - 01 CO2 27 20 - 29 mmol/L [facility] - 01 Calcium 9.0 8.7 - 10.3 mg/dL [facility] - 01 Protein, sr 6.4 6.0 - 8.5 g/dL [facility] - 01 Albumin 4.3 3.9 - 4.9 g/dL [facility] - 01 Globulin, Total 2.1 1.5 - 4.5 g/dL [facility] - 01 Bilirubin, Total 0.5 0.0 - 1.2 mg/dL [facility] - 01 Alk phos 88 44 - 121 IU/L [facility] - 01 AST 23 0 - 40 IU/L [facility] - 01 ALT 29 0 - 32 IU/L [facility] - 01 Blood 05/06/2024 9:04 AM STONE LAYOUT MARKER 05/06/2024 Narrative [facility] - 05/07/2024 7:09 AM STONE LAYOUT MARKER Performed at: 01 - [facility] [id number] [employer] Stock: Brock Jamil PhD, Phone: [phone] Linsey Sanderson MD LAB BLOOD ORDERABLES Final Result Performing Organization Address City/State/[facility] Co de Phone Number [facility] - 01 * Screening Mammogram Bilateral W Ciro (12/15/2023 4:46 PM CDT) Anatomical Region Laterality Modality Breast Bilateral Mammography Impressions 12/15/2023 4:57 PM CDT BI-RADS ATLAS category (overall): 1 - Negative There is no mammographic evidence of malignancy. A 1 year screening mammogram is recommended. The patient has been or will be contacted. We recommend annual screening mammography for women at average risk of breast cancer beginning at age 40, based on guidelines of the [place] [employer] (ACR Practice Parameter for the Performance of Screening and Diagnostic Mammography) and [place] [employer]. For women with and elevated risk of breast cancer, please refer to the ACR Practice Parameter for specific screening recommendations. The patient will be entered into a reminder system with a target due date of 1 year for her next screening exam. Narrative 12/15/2023 4:57 PM CDT Screening Mammogram Bilateral W Ciro: 12/15/23 The study was acquired using full field digital technology and interpreted from soft copy. 2D digital mammographic views, as well as 3D digital tomosynthesis were performed in the CC and MLO projections. CLINICAL: Breast cancer screening by mammogram. No relevant medical history has been documented for this patient. No known family history of breast cancer. COMPARISONS: 12/02/2022 Screening Mammogram Bilateral W Ciro 07/31/2021 Screening Mammogram Bilateral W Ciro 10/05/2019 Screening Mammogram Bilateral W Ciro 04/30/2018 Screening Mammogram 2D Bilateral BREAST TISSUE: The breasts are extremely dense, which lowers the sensitivity of mammography. FINDINGS: No suspicious masses, suspicious calcifications, or other suspicious findings are seen within either breast. There has been no suspicious change. Linsey Sanderson MD IMG MAMMO PROCEDURES Final Result * Colonoscopy (05/28/2023 4:08 PM CDT) Anatomical Region Laterality Modality Other Historical Provider ENDOSCOPY PROCEDURES Rachel l Result * Hepatitis C antibody (02/29/2020 8:35 AM STONE LAYOUT MARKER) Hep C Ab NON-REACTI VE NON-REACT [place] [facility] SIGNAL TO CUT-OFF 0.02 <1.00 [facility] Comment: HCV antibody was non-reactive. There is no laboratory evidence of HCV infection. In most cases, no further action is required. However, if recent HCV exposure is suspected, a test for HCV RNA (test code 94391) is suggested. For additional information please refer to http://education.[employer]/faq/LLT07a0 (This link is being provided for informational/ educational purposes only.) 02/29/2020 8:35 AM STONE LAYOUT MARKER 02/29/2020 8:35 AM STONE LAYOUT MARKER Linsey Sanderson MD LAB MICROBIOLOGY - GENERAL ORDERABLES Final Result [facility] [id number] [place] [phone] * HM PAP SMEAR WITH HPV (09/22/2018) HM Pap smear Normal Historical Provider HEALTH MAINTENANCE Final Result from Last 3 Months or Most Recently Relevant to Health Maintenance Insurance [employer] OPEN ACCESS CIG[employer] OPEN ACCESS Care Teams Engravings Polisher Relationship Specialty Start Date End Date Linsey Sanderson MD [address] [place] [address] PCP - General 04/30/18
--- OUTSIDE RECORDS SUMMARY | 2024-07-04 02:33 | XMS_ITS | Clinical Summary ---
Author Organization [facility] Address [address] [place] [id number] Care Team Providers Care Manager Of Patient Name Role Phone Unavailable Primary Care Provider Unavailabl e Social History Tobacco Use Types Packs/Day Years Used Date Smoking Tobacco: Never Assessed Comments Unknown Sex and Gender Information Value Date Recorded Sex Assigned at Not on file Legal Sex Female 8:23 PM CDT Gender Identity Not on file Sexual Orientation Not on file Plan of Treatment Health Maintenance Due Date Last Done Comments Cervical Cancer Screening Pa p Smear (Age 30 to 64) Every 3 Years 1963 Colorectal Cancer Screening Colonoscopy (10 Years) 1963 Annual Physical 1966 Hepatitis C 1981 DTaP, Tdap and Td Vaccines ( 1 - Tdap) 1982 Cervical Cancer Screening Pa p with HPV Testing (Age 30 to 64) Every 5 Years 1993 Cervical Cancer Screening with HPV 1993 Mammogram Screening 2003 Pneumococcal Vaccine: 50+ Ye ars (1 of 1 - PCV) 2013 Zoster Vaccines (1 of 2) 2013 COVID-19 Vaccine (2023-2 5 season) 2023 RSV Immunization or 60+ Years (1 - 1-dose 75+ series) 2038 Meningococcal B Vaccine Aged Out No l onger eligible based on patient's age to complete this topic Meningococcal Vaccine Aged Out No jn nicolas eligible based on patient's age to complete this topic RSV Immunizations Under 20 Months Aged Out No longer eligible based on patient's age to complete this topic
--- OUTSIDE RECORDS SUMMARY | 2024-07-04 02:33 | XMS_ITS | Referral Summary ---
Author Organization [facility] Address [address] [place] [address] Care Team Providers Care Economic Forecaster Name Role Phone Linsey Sanderson MD Primary Care Provider Encounters Date Type Department Care Team Description 05/24/2024 Orders Only [facility] Internal Medicine [address] [place] [address] [phone] ProviderAugie MD 05/18/2024 4:15 PM CDT Office Visit [facility] Medical [facility] Internal Medicine [address] [place] [address] [phone] Linsey Sanderson MD Routine general medical examination at a health care facility (Primary Dx); Dyslipidemia; Hypertension, essential; Recurrent major depressive disorder, in full remission; BMI 28.0-28.9,adult from Last 3 Months Allergies No known active allergies Medications olopatadine [...] up-to-date with vaccines. Patient is followed by voice network engineer on regular basis for Pap smear and mammogram. Colonoscopy in 2023 showed 1 polyp and repeat in 3 years according to the patient Assessment & Plan (11/17/2022 4:57 PM CDT): Patient uses seatbelt. Patient tries to exercise on regular basis. She lost few lb. Lab results discussed. Patient is up-to-date with vaccines. Patient is followed by voice network engineer on regular basis for Pap smear and [...] monitor Assessment & Plan (03/19/2022 5:02 PM ASPHALT PAVING MACHINE OPERATOR): Continue current medications. Discussed low-salt diet. Discussed exercise on regular basis. Will continue to monitor Assessment & Plan (09/12/2021 4:11 PM CDT): Continue current medications. Discussed low-salt diet. Discussed exercise on regular basis. Will continue to monitor Assessment & Plan (03/14/2021 12:53 PM ASPHALT PAVING MACHINE OPERATOR): Continue current medications. Discussed low-salt diet. Discussed exercise on regular basis. Will continue to monitor Assessment & Plan (09/10/2020 8:02 AM CDT): Continue current medications. Discussed low-salt diet. Discussed exercise on regular basis. Will continue to monitor Assessment & Plan (03/12/2020 1:25 PM ASPHALT PAVING MACHINE OPERATOR): Continue current medications. Discussed low-salt diet. Discussed exercise on regular basis. Will continue to monitor Assessment & Plan (09/07/2019 9:24 AM CDT): Continue current medications. Discussed low-salt diet. Discussed exercise on regular basis. Will continue to monitor Assessment & Plan (03/09/2019 5:05 PM ASPHALT PAVING MACHINE OPERATOR): Continue current medications. Discussed low-salt diet. Discussed [...] . Assessment & Plan (03/19/2022 5:02 PM ASPHALT PAVING MACHINE OPERATOR): Controlled on current medications. Continue low-fat diet. Will continue to monitor . Assessment & Plan (09/12/2021 4:11 PM CDT): Controlled on current medications. Continue low-fat diet. Will continue to monitor . Assessment & Plan (03/14/2021 12:53 PM ASPHALT PAVING MACHINE OPERATOR): Controlled on current medications. Continue low-fat diet. Will continue to monitor . Assessment & Plan (09/10/2020 8:02 AM CDT): Controlled on low-fat diet Assessment & Plan (03/12/2020 1:26 PM ASPHALT PAVING MACHINE OPERATOR): Controlled on current medications. Continue low-fat diet. Will continue to monitor . Assessment & Plan (09/07/2019 9:24 AM CDT): Controlled on current medications. Continue low-fat diet. Will continue to monitor . Assessment & Plan (03/09/2019 5:05 PM ASPHALT PAVING MACHINE OPERATOR): Controlled on current medications. Continue low-fat diet. [...] Lexapro Assessment & Plan (03/19/2022 5:03 PM ASPHALT PAVING MACHINE OPERATOR): Patient is in remission and controlled on Lexapro Assessment & Plan (09/12/2021 4:11 PM CDT): Controlled on Lexapro Assessment & Plan (03/14/2021 12:53 PM ASPHALT PAVING MACHINE OPERATOR): Controlled on Lexapro Assessment & Plan (09/10/2020 8:02 AM CDT): Controlled on Lexapro Assessment & Plan (03/12/2020 1:26 PM ASPHALT PAVING MACHINE OPERATOR): Controlled on Lexapro Assessment & Plan (09/07/2019 9:24 AM CDT): Controlled on Lexapro Assessment & Plan (03/09/2019 5:05 PM ASPHALT PAVING MACHINE OPERATOR): Controlled on current medication Assessment & Plan (09/03/2018 10:27 AM CDT): Controlled on medication Allergic rhinitis 08/11/2015 Assessment & Plan (11/18/2023 8:54 AM CDT): Followed by the talent acquisition consultant Assessment & Plan (03/19/2022 5:03 PM ASPHALT PAVING MACHINE OPERATOR): Followed by the talent acquisition consultant Assessment & Plan (09/12/2021 4:11 PM CDT): Controlled on Flonase Assessment & Plan (09/10/2020 8:02 AM CDT): Controlled on Shea Assessment & Plan (03/12/2020 1:26 PM ASPHALT PAVING MACHINE OPERATOR): Controlled on Flonase and Zyrtec Assessment & Plan (09/07/2019 9:24 AM CDT): Controlled on Flonase and Zyrtec Assessment & Plan (03/09/2019 5:05 PM ASPHALT PAVING MACHINE OPERATOR): Controlled on Zyrtec and Flonase Assessment & Plan (09/03/2018 10:28 AM CDT): Controlled on Zyrtec Immunizations Immunization Administration Dates Next Due Influenza, Unspecified 11/17/2022(Deferr ed: Patient decision),03/19/2022(Deferred: Patient Refused) Pfizer SARS-CoV-2 Monovalent Vaccination (12+ Yrs) PURPLE 05/12/2020,04/18/2020 Tdap 03/09/2019 Social History Tobacco Use Types Packs/Day Years [...] on file Legal Sex Female 6:29 PM ASPHALT PAVING MACHINE OPERATOR Gender Identity Female 01/06/2022 2:08 PM ASPHALT PAVING MACHINE OPERATOR Sexual Orientation Not on file Last Filed Vital Signs Vital Sign Reading [...] 05/18/2024 4:16 PM CDT Plan of Treatment Not on file Procedures Procedure Name Priority Date/Time Associated Diagnosis Comments COMPREHENSIVE METABOLIC PANEL Routine 05/06/2024 9:04 AM ASPHALT PAVING MACHINE OPERATOR Dyslipidemia Hypertension, essential CBC WITH AUTO DIFFERENTIAL Routine 05/06/2024 9:04 AM ASPHALT PAVING MACHINE OPERATOR Dyslipidemia Hypertension, essential LIPID PANEL Routine 05/06/2024 9:04 AM ASPHALT PAVING MACHINE OPERATOR Dyslipidemia SCREENING MAMMOGRAM BILATERAL W CIRO Schedule Routine, Read Routine (OP Routine) 12/15/2023 4:46 PM CDT Breast cancer screening by mammogram COLONOSCOPY Routine 05/28/2023 4:08 PM CDT HEPATITIS C ANTIBODY Routine 02/29/2020 8:35 AM ASPHALT PAVING MACHINE OPERATOR HM PAP SMEAR WITH HPV Routine 09/22/2018 from Last 3 Months or Most Recently Relevant to Health Maintenance Results * CBC with auto differential (05/06/2024 9:04 AM ASPHALT PAVING MACHINE OPERATOR) WBC 4.4 3.4 - 10.8 x10E3/uL [facility] [...] [facility] - 01 Blood 05/06/2024 9:04 AM ASPHALT PAVING MACHINE OPERATOR 05/06/2024 Narrative [facility] - 05/07/2024 7:09 AM ASPHALT PAVING MACHINE OPERATOR Performed at: [address] [id number] [employer] Fiddle Player: Brock Jamil PhD, Phone: [phone] Linsey Sanderson MD LAB BLOOD ORDERABLES Final Result Performing Organization Address [facility] de Phone Number [facility] - * Lipid panel (05/06/2024 9:04 AM ASPHALT PAVING MACHINE OPERATOR) Cholesterol 160 100 - 199 mg/dL [facility] - 01 Triglycerides 110 0 - 149 mg/dL [facility] - 01 HDL Cholesterol 60 >39 mg/dL [facility] - 01 VLDL 20 5 - 40 mg/dL [facility] - 01 LDL, calculated 80 0 - 99 mg/dL [facility] - 01 Blood 05/06/2024 9:04 AM ASPHALT PAVING MACHINE OPERATOR 05/06/2024 Narrative [facility] - 05/07/2024 9:10 AM ASPHALT PAVING MACHINE OPERATOR Performed at: [address] [id number] [employer] [place] Player: Brock Jamil PhD, Phone: [phone] Linsey Sanderson MD LAB BLOOD ORDERABLES Final Result Performing Organization Address [facility] de Phone Number [facility] - * Comprehensive metabolic panel (05/06/2024 9:04 AM ASPHALT PAVING MACHINE OPERATOR) Glucose 82 70 - 99 mg/dL [facility] [...] [facility] - 01 Blood 05/06/2024 9:04 AM ASPHALT PAVING MACHINE OPERATOR 05/06/2024 Narrative [facility] - 05/07/2024 7:09 AM ASPHALT PAVING MACHINE OPERATOR Performed at: - [facility] [id number] [place] Player: Brock Jamil PhD, Phone: [phone] us Linsey Sanderson MD LAB BLOOD ORDERABLES Final Result [facility] - 01 * Screening Mammogram Bilateral W [...] age 40, based on guidelines of the [place] [employer] (ACR Practice Parameter for the Performance of Screening and Diagnostic Mammography) and [place] [employer]. For women [...] PM CDT) Anatomical Region Laterality Modality Other [facility] Provider ENDOSCOPY PROCEDURES Rachel l Result * Hepatitis C antibody (02/29/2020 8:35 AM ASPHALT PAVING MACHINE OPERATOR) Hep C Ab NON-REACTI VE NON-REACT [place] [facility] SIGNAL TO CUT-OFF 0.02 <1.00 [facility] Comment: HCV antibody was non-reactive. There is no laboratory evidence of HCV infection. In most cases, no further action is required. However, if recent HCV exposure is suspected, a test for HCV RNA (test code 96756) is suggested. For additional information please refer to http://education.[employer].Meet My Friends/faq/DAC45x6 (This link is being provided for informational/ educational purposes only.) 02/29/2020 8:35 AM ASPHALT PAVING MACHINE OPERATOR 02/29/2020 8:35 AM ASPHALT PAVING MACHINE OPERATOR us Linsey Sanderson MD LAB MICROBIOLOGY - GENERAL ORDERABLES Final Result [facility] [address] [place] [id number] * PAP SMEAR WITH HPV (09/22/2018) HM Pap smear Normal us Historical Provider HEALTH MAINTENANCE Final Result from Last 3 Months or Most Recently Relevant to Health Maintenance Insurance [employer] OPEN ACCESS meebeeNA OPEN ACCESS Care Teams Economic Forecaster Relationship Specialty Start Date End Date Linsey Sanderson MD [address] [place] [address] [place] [address] [facility] - General 04/30/18
[2024-07-04 07:15] VITALS: BP 144/74; PULSE 52; RESP 18; TEMP 36.4; O2SAT 97; BMI 28.8
--- NOTE | 2024-07-04 07:34 | WPDHPUPDATE1 ---
History and Physical Update Update Date/Time: 07/04/24 07:34 History and Physical has been reviewed, including an updated exam of the patient. There are NO changes in the patient's condition. Risks, benefits, and alternatives have been discussed and questions answered. Patient agrees to proceed with procedure.
--- NOTE | 2024-07-04 07:34 | PM.HPGS ---
History of Present Illness History of Present Illness Consent: Risks, benefits, and alternatives have been discussed and questions answered. Patient agrees to proceed with procedure. Chief complaint: post menopausal bleeding Narrative: Yee Vera is a 59 year old female presented for her annual exam in April of 2024. She reported occasional spotting since December of 2023. Pelvic ultrasound revealed a thickened endometrium 0.9cm. It was recommended to undergo D&C hysteroscopy especially given the patient's family history of her mother having uterine cancer. Risks of infection bleeding, perforation, and possible pathology were reviewed. Patient voices understanding and agrees to proceed. Review of Systems Review of Systems: not repeated day of surgery; patient states no changes in status PMFSH Past Medical History Medical History (Updated 07/04/24 @ 07:37 by Saba Sorensen MD) PONV (postoperative nausea and vomiting) Hyperlipidemia Hypertension Asthma Surgical History Surgical History (Updated 07/04/24 @ 07:36 by Saba Sorensen MD) History of hysteroscopy 2015 and 2020 with benign findings Social History Social History Smoking status: Never smoker Substance use: never Substance use type: does not use Living arrangements: with family Meds Home Medications and Allergies Home Medications ?Medication ?Instructions ?Recorded ?Confirmed ?Type amlodipine 10 mg tablet 10 mg PO DAILY 06/23/24 06/23/24 History atorvastatin 10 mg tablet 10 mg PO DAILY 06/23/24 06/23/24 History cetirizine 10 mg tablet (24Hour 10 mg PO DAILY PRN allergy symptoms 06/23/24 06/23/24 History Allergy) estradiol-norethindrone acet 0.5 1 tablet PO DAILY 06/23/24 06/23/24 History mg-0.1 mg tablet metoprolol tartrate 100 mg tablet 100 mg PO DAILY 06/23/24 06/23/24 History multivitamin (Daily Multi-Vitamin 1 tablet PO DAILY 06/23/24 06/23/24 History tablet) Allergies Allergy/AdvReac Type Severity Reaction Status Date / Time No Known Allergies Allergy Verified 06/23/24 13:46 Exam Const: General: healthy appearing and alert Orientation/consciousness: patient oriented x3 Resp: Effort & Inspection: normal respiratory effort : External Female Exam: normal external appearance Speculum Exam - Vagina: normal appearance of the vagina and normal vaginal discharge Speculum Exam - Cervix: normal appearance of the cervix Bimanual exam- vagina & uterus: uterine size normal and consistency normal Bimanual Exam- Adnexa, other: normal adnexae and No adnexal tenderness Neuro: General: patient oriented x3 Assessment and Plan Assessment and plan (1) Post-menopausal bleeding: Code(s): N95.0 - Postmenopausal bleeding Status: Acute Assessment and Plan: Plan to proceed with D&C hysteroscopy
[2024-07-04] MEDS: LACTATED RINGERS 1,000 ML 30 ML IV CONT (07:40)
[2024-07-04] MEDS: ACETAMINOPHEN 500 MG TABLET 1000 MG PO (07:48)
--- NOTE | 2024-07-04 07:55 | P.PNAN_ITS ---
Anes - Initial Pre Proc Eval Procedure: Operation Date: 07/04/24 09:00 Proposed Procedures p Hysteroscopy Dilation and Curettage - Saba Sorensen MD Date/Time: 07/04/24 07:55 Surgeon: Saba Sorensen MD Pre Op Diagnosis: post menopausal bleeding Patient Data Age: 59 Gender: F Height: 1.6 m Weight: 72.3 kg Allergies Allergy/AdvReac Type Severity Reaction Status Date / Time No Known Allergies Allergy Verified 06/23/24 13:46 Home Medications ?Medication ?Instructions ?Recorded ?Confirmed ?Type amlodipine 10 mg tablet 10 mg PO DAILY 06/23/24 06/23/24 History atorvastatin 10 mg tablet 10 mg PO DAILY 06/23/24 06/23/24 History cetirizine 10 mg tablet (24Hour 10 mg PO DAILY PRN allergy symptoms 06/23/24 06/23/24 History Allergy) estradiol-norethindrone acet 0.5 1 tablet PO DAILY 06/23/24 06/23/24 History mg-0.1 mg tablet metoprolol tartrate 100 mg tablet 100 mg PO DAILY 06/23/24 06/23/24 History multivitamin (Daily Multi-Vitamin 1 tablet PO DAILY 06/23/24 06/23/24 History tablet) Patient hx anesthesia problems: none Family hx anesthesia problems: none Results Review: All pre-operative results and documents have been reviewed as part of the pre- operative evaluation. [facility] Past Medical History Medical History (Updated 07/04/24 @ 07:37 by Saba Sorensen MD) PONV (postoperative nausea and vomiting) Hyperlipidemia Hypertension Asthma Surgical History Surgical History (Updated 07/04/24 @ 07:36 by Saba Sorensen MD) History of hysteroscopy 2015 and 2020 with benign findings Social History Social History Smoking status: Never smoker Substance use: never Substance use type: does not use Living arrangements: with family Anes - Eval Final PreProcedure Day of Procedure 07/04/24 07:55 Patient weight: overweight Heart: regular rate and rhythm Lungs: clear to auscultation Airway: Mallampati scale class II Neurological: alert and oriented Last oral intake: >/= 8 hours ASA classification: II Emergent: no Anesthetic plan: proceed Anesthesia type and monitoring: general GIVS and standard monitoring Results Review: All pre-operative results and documents have been reviewed as part of the pre- operative evaluation. Informed Consent: The patient's anesthetic plan and its attendant risks and benefits were discussed with the patient/family/POA. Questions were solicited and answers provided to the satisfaction of the patient/family/POA.
--- NOTE | 2024-07-04 09:10 | P.OP_ITS ---
Procedure Note - Detailed Date of Procedure 07/04/24 Pre-op Diagnosis post menopausal bleeding Post-op Diagnosis Same Procedure Performed D&C hysteroscopy with resection of polyp Surgeon Saba Sorensen MD Anesthesia MAC Findings Cervix is stenotic. Uterus sounds to 8cm. There was a large polyp filling the majority of the cavity arising from the left sidewall. The remainder of the endometrium appears grossly atrophic. Description of Procedure The patient was taken to the operating room and placed under anesthesia in the dorsal lithotomy position. She was prepped and draped in usual sterile fashion. [place] speculum was placed in the vagina and the cervix was grasped on the anterior lip with a tenaculum. The external os is stenotic. The Hegar dilators are used to open the os. The uterus was then sounded to 8cm. The diagnostic hysteroscope was placed and with the above-stated findings the small Aveta resection device is opened. Under direct visualization the polyp was removed in its entirety. The hysteroscope was then removed. The sharp curette was used to curette the endometrium until a good uterine cry was noted in all areas. Minimal material was obtained consistent with the atrophic appearance. All instruments were then removed. Patient was awakened from anesthesia and taken to recovery in stable condition. The sponge, needle, and instrument counts are correct per the OR staff. Estimated Blood Loss 5 Drains No Packing No Pathology Yes (Endometrial shavings and curettings) Complications No immediate complications Condition Stable Disposition PACU
[2024-07-04 09:15] VITALS: BP 111/72; PULSE 62; RESP 18; O2SAT 99
[2024-07-04 09:45] VITALS: BP 138/64; PULSE 50
[2024-07-04 10:15] VITALS: BP 150/55; PULSE 47
== END 2024-07-04 10:18 | disposition home or self-care (01) ==
PROVIDERS: PCP Internal Medicine; Visit Provider Obstetrics & Gynecology Gynecology
PROC: 0U5B8ZZ Destruction of Endometrium, Via Natural or Artificial Opening Endoscopic (ICD-10-PCS; CPT 58563; principal; 2024-07-04 09:00)
DX: R93.89 Abnormal findings on diagnostic imaging of other specified body structures (principal); N88.2 Stricture and stenosis of cervix uteri; N84.0 Polyp of corpus uteri; E78.5 Hyperlipidemia, unspecified; I10 Essential (primary) hypertension; J45.909 Unspecified asthma, uncomplicated; Z98.890 Other specified postprocedural states
CPT/HCPCS: 58558; 88305; A9270; J2003; J2250; J2704; J7120